=== PATIENT | female | born 1970 | race Caucasian/White ===

== ENCOUNTER 2019-01-09 23:44 | Inpatient (IN) | payer OTHER ==
[~2019-01-09] VITALS: Ht 177.8 cm; Wt 58.1 kg
[~2019-01-09 23:44] MED LIST: HYDR1TAB4 PO; PROM25TA15 PO; ZOLP10TA2 PO; [UNRECOGNIZED DRUG - CODE] PO
[2019-01-10] MEDS ORDERED: ASPIRIN 81 MG TAB.CHEW PO ONE (00:15)
[2019-01-10] MEDS ORDERED: HYDROMORPHONE 1 MG/1 ML DISP.SYRIN IM ONE ×3 (00:15→03:45)
[2019-01-10] MEDS ORDERED: ONDANSETRON ODT 4 MG TAB.RAPDIS SL ONE ×2 (00:15→03:45)
[2019-01-10] MEDS ORDERED: ONDANSETRON ODT 4 MG TAB.RAPDIS ONE ×3 (00:27→02:42)
[2019-01-10] MEDS ORDERED: ASPIRIN 81 MG TAB.CHEW ONE (00:27)
[2019-01-10] MEDS ORDERED: HYDROMORPHONE 1 MG/1 ML DISP.SYRIN ONE ×3 (00:27→02:43)
[2019-01-10] MEDS ORDERED: LORAZEPAM 0.5 MG TABLET ONE (00:28)
[2019-01-10 00:30] LABS: BASOPHILS % (AUTO) 0.7 % (0.0-2.0); EOSINOPHILS % (AUTO) 0.3 % (0.0-7.0); HEMATOCRIT 36.9 % (31.2-41.9); HEMOGLOBIN 12.8 g/dL (10.9-14.3); LYMPHOCYTES # (AUTO) 2.2 K/uL (20.0-40.0); LYMPHOCYTES % (AUTO) 31.1 % (20.5-51.5); MEAN CORPUSCULAR HEMOGLOBIN 29.2 uug (24.7-32.8); MEAN CORPUSCULAR HGB CONC 35 g/dL (32.3-35.6); MEAN CORPUSCULAR VOLUME 84.5 fL (75.5-95.3); MONOCYTES # (AUTO) 0.7 K/uL (2.0-10.0); MONOCYTES % (AUTO) 9.3 % (0.0-11.0); NEUTROPHILS # (AUTO) 4.2 K/uL (1.8-8.9); NEUTROPHILS % (AUTO) 58.6 % (38.5-71.5); PLATELET COUNT (AUTO) 329 K/uL (179-408); RED BLOOD CELL COUNT(AUTO) 4.37 MIL/uL (3.63-4.92); WHITE BLOOD COUNT (AUTO) 7.2 K/uL (3.8-11.8)
[2019-01-10] MEDS ORDERED: METHIMAZOLE 5 MG TABLET PO SCH (00:30)
[2019-01-10] MEDS ORDERED: LORAZEPAM 0.5 MG TABLET PO ONE (00:30)
[2019-01-10 00:43] LABS: CREATININE 0.6 mg/dL (0.6-1.3); POTASSIUM 3.7 mmol/L (3.5-5.1)
[2019-01-10 00:48] LABS: BILIRUBIN,DIRECT 0.2 mg/dL (0.0-0.2); BILIRUBIN,TOTAL 1.6 mg/dL (0.2-1.0); TOTAL PROTEIN, SERUM 6.9 g/dL (6.4-8.2)
--- NOTE | 2019-01-10 05:52 | NUR ---
report given to Buffy WING.
[2019-01-10] MEDS ORDERED: TIZA4TAB11 PO (06:00)
[2019-01-10] MEDS ORDERED: IODI150T PO (06:00)
[2019-01-10] MEDS ORDERED: LORA2TAB PO (06:00)
[2019-01-10] MEDS ORDERED: PROP10TA10 PO (06:00)
[2019-01-10] MEDS ORDERED: METH10TA7 PO (06:00)
--- NOTE | 2019-01-10 06:40 | NUR ---
Patient transferred to med surg floor via ingrid, with Lizy RN. patient in stable condition and VSS. Patient alert and oriented x4.
[2019-01-10 06:56] VITALS: BP 167/80
[2019-01-10] MEDS ORDERED: ZOLPIDEM 5 MG TABLET PO PRN (07:00)
[2019-01-10] MEDS ORDERED: ACETAMINOPHEN 325 MG TABLET PO PRN (07:00)
[2019-01-10] MEDS ORDERED: MAGNESIUM HYDROXIDE 30 ML LIQUID UDC PO PRN (07:00)
[2019-01-10] MEDS: PANTOPRAZOLE SODIUM 40 MG TABLET.DR PO SCH (09:11)
[2019-01-10] MEDS: HYDROCODONE/APAP 10-325 MG TABLET PO PRN (09:59)
[2019-01-10] MEDS ORDERED: METHIMAZOLE 20 MG PO SCH (10:45)
[2019-01-10] MEDS ORDERED: TIZANIDINE HCL 4 MG TABLET PO SCH (10:45)
[2019-01-10] MEDS ORDERED: Medication Not On Formulary EA (Zolpidem Tartrate (Ambien) 10 MG) PO SCH (10:45)
[2019-01-10 11:08] VITALS: BP 138/64
[2019-01-10] MEDS ORDERED: LORAZEPAM 1 MG TABLET PO PRN (11:15)
[2019-01-10] MEDS: METHIMAZOLE 5 MG TABLET PO SCH (11:54)
[2019-01-10] MEDS: PROPRANOLOL HCL 10 MG TABLET PO SCH (11:55)
--- NOTE | 2019-01-10 12:30 | NUR ---
MIDLINE INSERTED BY SUE ON LEFT BASILIC # 18 GAUGE.
[2019-01-10] MEDS ORDERED: LIDOCAINE HCL 1% 20 ML VIAL IJ STA (12:48)
[2019-01-10] MEDS: IV NS 1000 ML 1,000 ML IV PRN (13:00)
[2019-01-10] MEDS: ONDANSETRON 4 MG/2 ML VIAL IV PRN ×2 (13:34→22:00)
[2019-01-10 15:08] VITALS: BP 103/40
--- NOTE | 2019-01-10 15:30 | NUR ---
RECEIVED PATIENT IN BED , NO C/O PAIN AND NO SOB NOTED AT THIS TIME. NO IV . SAFETY AND COMFORT PROVIDED AT ALL TIME. CALL LIGHT WITHIN REACHED. WILL CONTINUE TO MONITOR.
[2019-01-10] MEDS: HYDROMORPHONE 1 MG/1 ML DISP.SYRIN IV PRN ×2 (16:03→20:20)
--- NOTE | 2019-01-10 18:47 | NUR ---
PATIENT IN BED , NO C/O PAIN AND NO SOB NOTED AT THIS TIME. MIDLINE ON THE LEFT BASILIC #18, INTACT AND PATENT . SAFETY AND COMFORT PROVIDED AT ALL TIME. CALL LIGHT WITHIN REACHED. WILL CONTINUE TO MONITOR.
[2019-01-10 20:12] VITALS: BP 114/32
[2019-01-10] MEDS ORDERED: ZOLPIDEM 5 MG TABLET PO SCH (21:00)
--- NOTE | 2019-01-10 21:30 | NUR ---
PATIENT HAD UNWITNESSED FALL IN THE BATHROOM, BODY CHECK WAS DONE, NO VISIBLE INJURY NOTED, BUT COMPLAIN OF LEFT SIDE OF HEAD SORENESS. INSTRUCTED PATIENT TO STAY IN BED, AND TO CALL THE NURSE IF SHE NEEDS TO GO TO THE BATHROOM, CONT TO MONITOR.
--- NOTE | 2019-01-10 22:22 | NUR ---
NOTIFY DR. ROTH REGARDING THE PATIENT UNWITNESSED FALL, WITH ORDER FOR CT OF THE HEAD WITHOUT CONTRAST.
[2019-01-11] MEDS: IV NS 1000 ML 1,000 ML IV PRN ×2 (01:45→13:48)
[2019-01-11] MEDS: HYDROMORPHONE 1 MG/1 ML DISP.SYRIN IV PRN ×2 (02:21→10:19)
[2019-01-11 05:24] VITALS: BP 132/54
[2019-01-11] MEDS: PANTOPRAZOLE SODIUM 40 MG TABLET.DR PO SCH (06:05)
[2019-01-11 06:50] LABS: BASOPHILS % (AUTO) 0.6 % (0.0-2.0); EOSINOPHILS % (AUTO) 0.5 % (0.0-7.0); HEMATOCRIT 34.2 % (31.2-41.9); HEMOGLOBIN 11.6 g/dL (10.9-14.3); LYMPHOCYTES # (AUTO) 2.5 K/uL (20.0-40.0); LYMPHOCYTES % (AUTO) 38.7 % (20.5-51.5); MEAN CORPUSCULAR HEMOGLOBIN 28.7 uug (24.7-32.8); MEAN CORPUSCULAR HGB CONC 34 g/dL (32.3-35.6); MEAN CORPUSCULAR VOLUME 84.3 fL (75.5-95.3); MONOCYTES # (AUTO) 0.6 K/uL (2.0-10.0); MONOCYTES % (AUTO) 8.5 % (0.0-11.0); NEUTROPHILS # (AUTO) 3.4 K/uL (1.8-8.9); NEUTROPHILS % (AUTO) 51.7 % (38.5-71.5); PLATELET COUNT (AUTO) 169 K/uL (179-408); RED BLOOD CELL COUNT(AUTO) 4.05 MIL/uL (3.63-4.92); WHITE BLOOD COUNT (AUTO) 6.6 K/uL (3.8-11.8)
--- NOTE | 2019-01-11 06:53 | NUR ---
PATIENT ALERT ORIENTED, NO SOB NO CHEST PAIN NOTED, CONT PAIN MANAGEMENT. PATIENT HAS NO CHANGE OF LOC. PATIENT CONT TO ASSIST WITH TOILETING. CONT TO MONITOR.
[2019-01-11 06:59] LABS: CARBON DIOXIDE 23 mmol/L (21-32); CHLORIDE 105 mmol/L (98-107); CREATININE 0.3 mg/dL (0.6-1.3); GLUCOSE 132 mg/dL (74-106); MAGNESIUM 1.6 mg/dL (1.8-2.4); PHOSPHOROUS 3.1 mg/dL (2.5-4.9); POTASSIUM 3.4 mmol/L (3.5-5.1); UREA NITROGEN, BLOOD 9 mg/dL (7-18)
--- NOTE | 2019-01-11 07:20 | NUR ---
PATIENT IN BED , NO S/S OF ACUTE DISTRESS NOTED, MIDLINE INTACT, PRN PAIN MEDICATIONS GIVEN EARLIER, WILL CONTINUE MONITOR PAIN . SAFETY AND COMFORT PROVIDED AT ALL TIMES. WILL CONTINUE TO MONITOR
[2019-01-11] MEDS: PROPRANOLOL HCL 10 MG TABLET PO SCH (08:41)
[2019-01-11] MEDS: METHIMAZOLE 5 MG TABLET PO SCH (08:44)
[2019-01-11] MEDS: ONDANSETRON 4 MG/2 ML VIAL IV PRN (08:49)
[2019-01-11] MEDS: MAGNESIUM SULFATE/D5W 100 ML IV SCH ×2 (10:23→11:31)
[2019-01-11] MEDS ORDERED: METH10TA7 PO (10:29)
[2019-01-11] MEDS ORDERED: IODI150T PO (10:29)
[2019-01-11] MEDS ORDERED: PROP10TA10 PO (10:29)
[2019-01-11] MEDS ORDERED: TIZA4TAB11 PO (10:29)
[2019-01-11 11:08] VITALS: BP 117/47
[2019-01-11] MEDS ORDERED: POTASSIUM CHLORIDE 20 MEQ TAB.PRT.SR PO ONE (11:30)
[2019-01-11 15:08] VITALS: BP 107/51
[2019-01-11] MEDS: HYDROCODONE/APAP 10-325 MG TABLET PO PRN (16:35)
--- NOTE | 2019-01-11 18:40 | NUR ---
PATIENT IN BED RESTING , NO S/S OF ACUTE DISTRESS NOTED, MIDLINE REMOVED PRN PAIN MEDICATIONS GIVEN EARLIER, WILL CONTINUE MONITOR PAIN . SAFETY AND COMFORT PROVIDED AT ALL TIMES. WILL CONTINUE TO MONITOR, PATIENT BEEN DISCHARGE , WAITING FOR HER RIDE.
[2019-01-11 20:04] VITALS: BP 116/41
[2019-01-11] MEDS ORDERED: TIZANIDINE HCL 4 MG TABLET PO SCH (21:00)
--- NOTE | 2019-01-11 22:19 | NUR ---
PATIENT IS ALERT AND AWAKE REQUESTED FOR TYLENOL FOR HEADACHE . PATIENT IS IN NO ACUTE DISTRESS, COMFORTABLE. ALL DISCHARGE PAPERS SIGNED , MEDICATIONS DISCUSSED WITH PATIENT , PATIENT UNDERSTANDS, PATIENT WAS ESCORTED VIA WHEELCHAIR BY WOODWORKING MACHINE OPERATOR TO HER UBER RIDE . SHE HAS ALL HER BELONGINGS . MIDLUINE, AND ARM BAND TAKEN OUT. PATIENT HAS BEEN DISCHARGED IN STABLE CONDITION.
== END 2019-01-11 22:16 | disposition home or self-care (01) | DRG 54 ==
LOC: ER 23:47 → MEDSURG3 01-10 05:55
PROVIDERS: ADMIT Nurse Practitioner Acute Care; ATTEND Hospitalist
PROC: 05HC33Z Insertion of Infusion Device into Left Basilic Vein, Percutaneous Approach (ICD-10-PCS; principal; 2019-01-10)
DX: G43.919 Migraine, unspecified, intractable, without status migrainosus (principal); E83.42 Hypomagnesemia; E05.90 Thyrotoxicosis, unspecified without thyrotoxic crisis or storm; Z91.138 Patient's unintentional underdosing of medication regimen for other reason; Z83.3 Family history of diabetes mellitus; E87.6 Hypokalemia; R07.89 Other chest pain
CPT/HCPCS: 36415; 70030-TC; 70450; 71045; 83735; 84100; 84443; 85025; 93005; 93307; A4663; G0378; J1170; J2405; J3475; J3490; J7030; Q0162

== ENCOUNTER 2019-02-04 23:53 | Inpatient (IN) | payer OTHER ==
[~2019-02-04] VITALS: Ht 157.5 cm; Wt 57.2 kg
[~2019-02-04 23:53] MED LIST changes: -HYDR1TAB4 PO; +IODI150T PO; +LORA2TAB PO; +METH10TA7 PO; -PROM25TA15 PO; +PROP10TA10 PO; +TIZA4TAB11 PO; -[UNRECOGNIZED DRUG - CODE] PO
--- NOTE | 2019-02-05 00:36 | NUR ---
Sharmila marcos in EDM - 02/05/19 at 0037 by PIERCE Patient discharged to home in stable conditon. Written and verbal after care instructions given. Patient verbalizes understanding of instructions. pt ambulating with steady gait
[2019-02-05 00:46] LABS: BASOPHILS % (AUTO) 0.4 % (0.0-2.0); EOSINOPHILS % (AUTO) 0.3 % (0.0-7.0); HEMATOCRIT 37.4 % (31.2-41.9); HEMOGLOBIN 12.8 g/dL (10.9-14.3); LYMPHOCYTES # (AUTO) 2.7 K/uL (20.0-40.0); LYMPHOCYTES % (AUTO) 39.4 % (20.5-51.5); MEAN CORPUSCULAR HEMOGLOBIN 29.1 uug (24.7-32.8); MEAN CORPUSCULAR HGB CONC 34 g/dL (32.3-35.6); MONOCYTES # (AUTO) 0.6 K/uL (2.0-10.0); MONOCYTES % (AUTO) 8.7 % (0.0-11.0); NEUTROPHILS # (AUTO) 3.6 K/uL (1.8-8.9); NEUTROPHILS % (AUTO) 51.2 % (38.5-71.5); PLATELET COUNT (AUTO) 317 K/uL (179-408); WHITE BLOOD COUNT (AUTO) 6.9 K/uL (3.8-11.8)
[2019-02-05 00:57] LABS: CARBON DIOXIDE 26 mmol/L (21-32); CHLORIDE 105 mmol/L (98-107); CREATININE 0.5 mg/dL (0.6-1.3); GLUCOSE 127 mg/dL (74-106); POTASSIUM 3.9 mmol/L (3.5-5.1); UREA NITROGEN, BLOOD 14 mg/dL (7-18)
[2019-02-05 01:02] LABS: ALANINE AMINOTRANSFERASE 25 U/L (14-59); ALKALINE PHOSPHATASE 122 U/L (50-136); ASPARTATE AMINOTRANSFERASE 8 U/L (15-37); BILIRUBIN,DIRECT 0.3 mg/dL (0.0-0.2); BILIRUBIN,TOTAL 1.6 mg/dL (0.2-1.0); TOTAL PROTEIN, SERUM 7.6 g/dL (6.4-8.2)
[2019-02-05] MEDS ORDERED: HYDR-4354 PO (01:28)
[2019-02-05] MEDS ORDERED: LORAZEPAM 1 MG TABLET ONE (01:59)
[2019-02-05] MEDS ORDERED: LORAZEPAM 0.5 MG TABLET PO ONE (02:00)
--- NOTE | 2019-02-05 02:04 | NUR ---
Dr. Zelaya on panel call with Dr. Ingram.
[2019-02-05] MEDS ORDERED: ACETAMINOPHEN 325 MG TABLET PO PRN (02:15)
[2019-02-05] MEDS ORDERED: Z GUARD REMEDY PASTE 57 GM TUBE TOP PRN (02:15)
[2019-02-05] MEDS ORDERED: Medication Not On Formulary EA (Zolpidem Tartrate (Ambien) 10 MG) PO SCH (02:15)
[2019-02-05] MEDS ORDERED: MAGNESIUM HYDROXIDE 30 ML LIQUID UDC PO PRN (02:15)
[2019-02-05] MEDS ORDERED: HYDROCODONE/APAP 10-325 MG TABLET PO PRN ×2 (02:15→07:15)
--- NOTE | 2019-02-05 02:17 | NUR ---
Pt. admitted to Med/Surg, under care of Dr. Arthur Diagnosis: Dysphagia Belongs List completed
--- NOTE | 2019-02-05 03:25 | NUR ---
pt stated that she never get to swallowed the ativan from ER; paged Dr Arthur for further orders for anxiety and pain management; awaiting call back.
[2019-02-05 03:28] VITALS: BP 118/58
[2019-02-05] MEDS ORDERED: KETOROLAC TROMETHAMINE 15 MG INJ IVP PRN (04:15)
[2019-02-05] MEDS: LORAZEPAM 2 MG/1 ML VIAL IV PRN ×2 (04:35→23:06)
--- NOTE | 2019-02-05 07:27 | NUR ---
pt rested well in between carel IV ativamn and toradol ordered for pain and anxiety; kept NPO for test today
--- NOTE | 2019-02-05 07:30 | NUR ---
Received patient in bed. No signs/symptoms of acute distress or pain at this time. . Call light are within reach. Safety and comfort provided at all times. Will continue to monitor
[2019-02-05] MEDS ORDERED: METHIMAZOLE 20 MG PO SCH (09:00)
[2019-02-05] MEDS: METHIMAZOLE 5 MG TABLET PO SCH (09:00)
[2019-02-05] MEDS ORDERED: PROPRANOLOL HCL 10 MG TABLET PO SCH (09:00)
--- NOTE | 2019-02-05 09:14 | NUR ---
offer patient her medication patient refused states that she is having trouble with swallowing.
[2019-02-05 12:12] VITALS: BP 112/48
[2019-02-05] MEDS ORDERED: BARIUM SULFATE 340 GM ONE (12:43)
[2019-02-05 16:15] VITALS: BP 135/63
[2019-02-05] MEDS ORDERED: MORPHINE SULFATE 2 MG/1 ML DISP.SYRIN IV PRN (16:15)
[2019-02-05] MEDS ORDERED: KETOROLAC TROMETHAMINE 30 MG INJ IVP PRN (16:15)
[2019-02-05] MEDS ORDERED: TIZANIDINE HCL 4 MG TABLET PO SCH (18:00)
--- NOTE | 2019-02-05 18:55 | NUR ---
Patient in bed. No signs/symptoms of acute distress or pain at this time. Call light are within reach. kept clean and dry at all times. Safety and comfort provided at all times. Will continue to monitor.
[2019-02-05 20:05] VITALS: BP 118/49
[2019-02-05] MEDS: PROPRANOLOL HCL 10 MG TABLET PO SCH (20:20)
[2019-02-05] MEDS: FAMOTIDINE. 20 MG/2 ML VIAL IV SCH ×2 (20:20→21:00)
[2019-02-05] MEDS: HYDROMORPHONE 1 MG/1 ML DISP.SYRIN IV PRN (22:28)
[2019-02-06] MEDS: HYDROMORPHONE 1 MG/1 ML DISP.SYRIN IV PRN ×4 (02:48→21:05)
[2019-02-06 04:47] VITALS: BP 124/52
--- NOTE | 2019-02-06 05:49 | NUR ---
[employer] not working until 0230 my shift. patient received in bed. mid line inserted on right upper arm, tolerated well. administered 1 Dilaudid, Ativan, Pepcid IV when [employer] down, entered admin scheduled once [employer] up and running. total Dilaudid administered 2x and ativan administered 2x. attempted to provided patient Tylenol for c/o of headache, but refused. returned to [facility] . no signs of acute distress and v/s stable throughout shift. safety and comfort measures provided at all times. will continue plan of care and endorse to morning nurse accordingly.
[2019-02-06] MEDS: LORAZEPAM 2 MG/1 ML VIAL IV PRN ×2 (05:55→20:08)
[2019-02-06 06:57] LABS: CREATININE 0.3 mg/dL (0.6-1.3); MAGNESIUM 1.6 mg/dL (1.8-2.4); PHOSPHOROUS 4.5 mg/dL (2.5-4.9); UREA NITROGEN, BLOOD 13 mg/dL (7-20)
[2019-02-06 06:58] LABS: CARBON DIOXIDE 27 mmol/L (21-32); CHLORIDE 104 mmol/L (98-107); CHOLESTEROL 128 mg/dL (<200); GLUCOSE 98 mg/dL (74-106); HDL CHOLESTEROL 55 mg/dL (40-60); POTASSIUM 3.7 mmol/L (3.5-5.1); TRIGLYCERIDES 70 MG/DL (30-150)
[2019-02-06] MEDS: METHIMAZOLE 5 MG TABLET PO SCH (08:04)
[2019-02-06] MEDS: FAMOTIDINE. 20 MG/2 ML VIAL IV SCH ×2 (08:05→20:06)
[2019-02-06] MEDS: PROPRANOLOL HCL 10 MG TABLET PO SCH ×2 (08:05→20:06)
[2019-02-06 08:38] LABS: HEMATOCRIT 36.7 % (37-47); HEMOGLOBIN 12.4 G/DL (12.0-16.0); MEAN CORPUSCULAR VOLUME 85.7 FL (81.0-99.0); RED BLOOD CELL COUNT(AUTO) 4.28 MIL/UL (4.2-5.4); WHITE BLOOD COUNT (AUTO) 6.1 K/UL (4.0-11.2)
[2019-02-06 08:39] LABS: BASOPHILS % (AUTO) 0.4 % (0.0-2.0); EOSINOPHILS % (AUTO) 0.5 % (0.0-7.0); LYMPHOCYTES % (AUTO) 49.7 % (20.5-51.5); MEAN CORPUSCULAR HEMOGLOBIN 28.9 UUG (27.0-31.0); MEAN CORPUSCULAR HGB CONC 34 g/dL (32.0-37.0); MONOCYTES # (AUTO) 0.6 K/UL (0.1-1.30); MONOCYTES % (AUTO) 9.4 % (0.0-11.0); NEUTROPHILS # (AUTO) 2.4 K/UL (1.8-8.9); PLATELET COUNT (AUTO) 314 K/UL (150-450)
[2019-02-06 11:08] VITALS: BP 127/49
[2019-02-06] MEDS: ONDANSETRON 4 MG/2 ML VIAL IV PRN ×2 (11:09→21:04)
[2019-02-06] MEDS: MAGNESIUM SULFATE/D5W 100 ML IV SCH ×2 (11:59→13:44)
[2019-02-06 15:16] VITALS: BP 141/58
[2019-02-06] MEDS ORDERED: PROP10TA68 PO (16:31)
--- NOTE | 2019-02-06 17:30 | NUR ---
Patient alert and oriented, ambulatory. No distress noted. Pain managed with PRN dilaudid. Swallow eval today by Speech therapist, recommends video swallow study. Spoke to Berta from speech therapy who states these tests are not done on weekends, she will place her own note. Diet changed to mechanical soft for dinner. Discharge order placed, case management involved. Zofran given for nausea PRN. Magnesium 1.6 replaced today via IV. Discharge initiated, will endorse remainder to oncoming shift. Midline right upper arm still in place. Patient states she can get picked up at 9pm.
--- NOTE | 2019-02-06 19:30 | NUR ---
Received patient resting in bed, easily to arouse. A/Ox4. No distress noted. Complained of headache, requesting Tylenol. Midline on right upper arm is intact and patent. Patient is to be discharged tonight, being picked up at 9PM. Patient is ambulatory. Safety measures initiated. Bed is low and locked, call light within reach. Will continue to monitor.
[2019-02-06 20:06] VITALS: BP 139/50
--- NOTE | 2019-02-06 21:51 | NUR ---
Patient left home, picked up by roommate. Brought downstairs via wheelchair accompanied by 4[employer] GRADE MATH TEACHER. All belongings with patient. Belonging list and discharge papers explained to patient and verbalized understandings. Patient left in stable condition.
== END 2019-02-06 21:50 | disposition home or self-care (01) | DRG 427 ==
LOC: ER 23:57 → MEDSURG3 02-05 02:30
PROVIDERS: ADMIT Family Medicine; ATTEND Internal Medicine
DX: E06.0 Acute thyroiditis (principal); R13.10 Dysphagia, unspecified; E05.90 Thyrotoxicosis, unspecified without thyrotoxic crisis or storm; R73.03 Prediabetes; F41.0 Panic disorder [episodic paroxysmal anxiety]; R17 Unspecified jaundice
CPT/HCPCS: 36415; 70030-TC; 70360; 74220; 83735; 84100; 84443; 85025; 85730; A4663; G0378; J1170; J1885; J2060; J2405; J3475; J3490; J7050; Q9967